=== PATIENT | female | born 1960 | race Caucasian/White ===

== ENCOUNTER → 2024-01-06 12:08 | Outpatient (REF) | payer OTHER, SELFPAY | LOC: HWWDC 12:08 | PROVIDERS: ATTENDING PHYSICIAN Emergency Medicine | DX: Z12.31 Encounter for screening mammogram for malignant neoplasm of breast (principal) | CPT/HCPCS: 77063; 77067 ==

== ENCOUNTER → 2024-01-19 10:24 | Outpatient (REF) | payer OTHER, SELFPAY | LOC: WDC 10:24 | PROVIDERS: ATTENDING PHYSICIAN Emergency Medicine | DX: R92.8 Other abnormal and inconclusive findings on diagnostic imaging of breast (principal) | CPT/HCPCS: 76642 ==

== ENCOUNTER → 2025-04-01 10:08 | Outpatient (REF) | payer OTHER, SELFPAY | LOC: HWRAD 10:08 | PROVIDERS: ATTENDING PHYSICIAN Obstetrics & Gynecology Gynecology; FAMILY PHYSICIAN Emergency Medicine | DX: N95.0 Postmenopausal bleeding (principal) | CPT/HCPCS: 76830; 76856 ==